=== PATIENT | female | born 1955 | race Caucasian/White ===

== ENCOUNTER → 2024-11-11 09:38 | Outpatient (REF) | payer MEDICARE, OTHER, SELFPAY | LOC: HWRAD 09:38 | PROVIDERS: ATTENDING PHYSICIAN Nurse Practitioner Primary Care; FAMILY PHYSICIAN Family Medicine; OTHER PHYSICIAN Internal Medicine Hematology & Oncology; REFERRING PHYSICIAN Physician Assistant Medical | DX: Z12.31 Encounter for screening mammogram for malignant neoplasm of breast (principal); Z78.0 Asymptomatic menopausal state; J18.0 Bronchopneumonia, unspecified organism; C50.219 Malignant neoplasm of upper-inner quadrant of unspecified female breast; Z79.811 Long term (current) use of aromatase inhibitors; M81.8 Other osteoporosis without current pathological fracture; R05.8 Other specified cough; C50.212 Malignant neoplasm of upper-inner quadrant of left female breast | CPT/HCPCS: 71046; 77063; 77067; 77080 ==

== ENCOUNTER 2025-11-28 06:30 | Day surgery (SDC) | payer MEDICARE, OTHER, SELFPAY ==
[2025-11-28 08:09] LABS: Glucose - Point of Care 159 mg/dl (70-99)
== END 2025-11-28 09:23 | disposition home or self-care (01) ==
LOC: GI 06:30
PROVIDERS: ATTENDING PHYSICIAN Internal Medicine
DX: K22.70 Barrett's esophagus without dysplasia (principal); K91.89 Other postprocedural complications and disorders of digestive system; Z87.19 Personal history of other diseases of the digestive system; Z98.84 Bariatric surgery status
CPT/HCPCS: 43239; 82962; 88305